=== PATIENT | male | born 1990 | race Two or more races ===

== ENCOUNTER → 2024-08-03 | Outpatient (CLI) | payer OTHER, SELFPAY ==
--- NOTE | 2024-08-03 16:41 | XR_ITS ---
Examination: Lumbar spine, 5 views Technique: Lumbar spine AP, lateral, coned lateral lower lumbar spine, bilateral obliques 5 views Exam date and time: August 03, 2024 1658 hrs. Indications: Low back pain beginning 4 months ago. Findings: Adequate alignment lumbar vertebral bodies No lumbar fracture Mild lumbar spondylosis Mild diffuse lumbar degenerative disc disease Impression: Mild diffuse lumbar degenerative disc disease
== END | disposition home or self-care (01) ==
PROVIDERS: PCP Family Medicine; Referring Provider Chiropractor; Visit Provider Chiropractor
DX: M51.369 Other intervertebral disc degeneration, lumbar region without mention of lumbar back pain or lower extremity pain (principal)
CPT/HCPCS: 72110

== ENCOUNTER 2024-10-10 15:32 | Emergency (ER) | payer OTHER, SELFPAY ==
[2024-10-10 15:32] VITALS: BP 137/86; PULSE 89; RESP 18; TEMP 36.6; O2SAT 99; BMI 28.4
--- NOTE | 2024-10-10 15:40 | XR_ITS ---
Examination: Toes, left foot first digit 2 views Technique: Toes AP lateral first digit left foot 2 views Date and time of exam: October 10, 2024 1534 hours INDICATIONS: Redness swelling and pain involving the first digit beginning this morning. FINDINGS: No fracture. No cortical bone destruction No foreign body IMPRESSION: No cortical bone destruction
[2024-10-10 15:58] LABS: Basophils % (Auto) 0 % (0-2.5); Eosinophils # (Auto) 0.1 Thou/mm3 (0.0-0.5); Eosinophils % (Auto) 1 % (0-10); Hematocrit 42.6 % (41.0-53.0); Hemoglobin 14.4 g/dL (13.5-16.0); Immature Granulocytes % (Auto) 0 % (0-0); Immature Granulocytes Auto 0.01 Thou/mm3 (0.00-0.00); Lymphocytes # (Auto) 1.4 Thou/mm3 (1.0-4.8); Lymphocytes % (Auto) 15 % (10-50); Mean Corpuscular HGB Conc 33.8 g/dl (31.0-37.0); Mean Corpuscular Hemoglobin 29.9 pg (25.0-35.0); Mean Corpuscular Volume 89 fL (80-100); Monocytes # (Auto) 0.5 Thou/mm3 (0.0-0.8); Monocytes % (Auto) 6 % (0-12); Neutrophils # (Auto) 7.6 Thou/mm3 (1.8-7.7); Neutrophils % (Auto) 79 % (37-80); Nucleated Red Blood Cell % 0 /100 WBC (0); Platelet Count 204 Thou/mm3 (140-440); RDW Standard Deviation 45.6 fL (35.1-43.9); Red Blood Count 4.81 Miln/mm3 (4.50-5.90); White Blood Count 9.7 Thou/mm3 (3.8-10.6)
[2024-10-10 16:18] LABS: Alanine Aminotransferase 25 U/L (10-49); Albumin, Serum 4.7 gm/dL (3.5-5.0); Alkaline Phosphatase 45 U/L (46-116); Anion Gap 11 (7-16); Aspartate Amino Transferase 22 U/L (0-34); BUN/Creatinine Ratio 9 Ratio (12-20); Bilirubin,Total 0.5 mg/dL (0.3-1.2); Blood Urea Nitrogen 9 mg/dL (9-23); C-Reactive Protein 3.8 mg/dL (0.0-0.9); Calcium 9.6 mg/dL (8.3-10.6); Calcium (Corrected) 9.6 mg/dL (8.5-10.1); Carbon Dioxide 25.9 mMol/L (20.0-31.0); Chloride 104 mMol/L (98-107); Globulin 2.4 gm/dL (2.3-3.5); Glucose 87 mg/dL (74-106); Osmolality,Calculated 278 (275-295); Sodium 141 mMol/L (136-145); Total Protein 7.1 gm/dL (5.7-8.2); eGFR > 60 See Note
--- NOTE | 2024-10-10 16:55 | PD.EDANKLE ---
Lower Extremity Injury RME/HPI General Chief Complaint: Ankle/Foot Injury Stated Complaint: left great toe infection Time Seen by Provider: 10/10/24 15:33 Source: patient Arrival date/time: 10/10/24 15:32 Mode of arrival: ambulatory Limitations: no limitations RME / HPI RME / HPI Narrative: 34-year-old male with no past medical history is here today with pain, swelling, at the nail fold of the right big toe. He states that started yesterday. He denies any trauma. He has no history of diabetes. He was seen in urgent care and started on Septra DS. He states the swelling got worse, he went back today, and was routed here for evaluation. He has no other acute complaints. Related Data Allergies Allergy/AdvReac Type Severity Reaction Status Date / Time No Known Allergies Allergy Verified 10/10/24 15:32 Review of Systems Review of Systems Systems Reviewed: All systems reviewed, normal except as documented ED Exam General Limitations: Present no limitations Skin Skin exam: Present other (There is erythema and fluctuance along the nail fold of the right helix.) Course Quality Measures none Orders Category Date Time Status XR toe LT min 2V Stat Exams 10/10/24 15:40 Completed CBC Stat Lab 10/10/24 15:51 Completed CMP [Comprehensive Metabolic Panel] Stat Lab 10/10/24 15:51 Completed CRP [C-Reactive Protein] Stat Lab 10/10/24 15:51 Completed Wound Cult and GS, Anaer Stat Lab 10/10/24 16:58 Ordered Procedures -ED Abscess I/D Site: other (hallux) Side (if applicable): right Sedation/analgesia: none Technique: other (Incised with a number 18-gauge needle) Amount of fluid expressed (mL): 0.5 Irrigation: No Packing used?: none Complications: other (None) Extremity Injury, Lower MDM Narrative MDM Narrative:: 34-year-old male who is here today with a large paronychia at the right helix. He is currently on Septra DS. Using an 18-gauge needle, the abscess was lanced, purulent drainage was released and cultured. Dressing was placed by nursing staff. Patient will continue with antibiotics. Follow-up close clinic as needed. Return anytime for any worsening or emergent changes. Patient data External records reviewed:: None Clinical information provided by:: patient Social determinants that could affect healthcare access:: none Patient has the following chronic illnesses:: n/a How is presenting disease/condition affected by chronic disease/condition?: no chronic disease Evaluation data The following diagnostics were reviewed and interpreted by me:: lab results (No leukocytosis or metabolic derangement) and radiology exam(s) (No soft tissue gas or evidence of osteomyelitis) Lab and/or radiology exams considered but not ordered:: n/a Interpretation Summary: Soft tissue abscess Medications / Prescriptions Medications or Prescriptions considered but not ordered:: n/a Medication administrations:: n/a Consultations Consultation(s) initiated? (list below): No Diagnosis Most likely diagnosis given after review of the tests above:: Paronychia Admission Indicated Admission indicated?: not indicated Admission Request Was there a request for admission?: No Disposition Plan Disposition Plan: Discharge Discharge Attestation Discharge Attestation: The patient and all family members were given an opportunity to ask questions and understood the discharge instructions. Discharge instructions specifically effects, indications for sooner follow up or return to the emergency department, and the expected course of current diagnosis. Patient condition: Stable Discharge Plan Plan Patient Disposition: HOME (Self Care) Patient condition on transfer: Stable Prescriptions/Referrals Referrals: No Primary/Family,Physician [Primary Care Provider] - In 1 week Problem List Clinical Impression: Paronychia Patient/Caregiver Discharge Instructions Additional Instructions: Continue taking your current antibiotics. Continue wound care at home. Follow-up in clinic as needed. Return here for any worsening or emergent changes. Print Language: [place] Stand Alone Forms: Tanya Award Info., Patient Portal Info Letter
== END 2024-10-10 17:38 | disposition home or self-care (01) ==
PROVIDERS: Physician Assistant Medical; Emergency Provider Family Medicine
DX: L03.032 Cellulitis of left toe (principal)
CPT/HCPCS: 36415; 73660; 80053; 85025; 86140; 87070; 87075; 87077; 87186; 87205; 99283